=== PATIENT | male | born 1950 | race Two or more races ===

== ENCOUNTER 2017-04-09 15:54 | Inpatient (IN) | payer MEDICARE, MEDICAID ==
--- NOTE | 2017-04-09 18:37 | ED Physician Chart ---
ED Chief Complaint/HPI - Patient Information Date Seen:: 04/09/17 Time Seen:: 18:10 Chief Complaint:: HERE FOR MED CLEARANCE FOR PSYCH ADMIT History of Present Illness:: THE 66-YEAR-OLD MALE WAS REFERRED TO [facility] FOR PSYCHIATRIC EVALUATION AND MEDICAL CLEARANCE. THE PATIENT HAS HAD TWO PRIOR STROKES, THE FIRST IN 2014 AND THE MOST RECENT ABOUT A MONTH AGO. SINCE THEN THE PATIENT HAS BECOME DEPRESSED AND ANXIOUS AND HAS SHOWN AGGRESSION TOWARD HIS FELLOW NURSING INMATES. THE PATIENT IS TOTALLY NONVERBAL IN THE HISTORY WAS OBTAINED FROM THE PATIENT'S . 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 HE HAS A PAST MEDICAL HISTORY OF DIABETES, HYPERTENSION AND CARDIOVASCULAR DISEASE. Allergies:: Allergies Allergy/AdvReac Type Severity Reaction Status Date / Time Penicillins Allergy Verified 04/09/17 16:03 Vitals:: Vital Signs - 8 hr 04/09/17 16:03 Temp 97.8 F HR 60 RR 16 BP 112/73 O2 Sat % 98 Historian:: Family Member Family MD/PCP:: Patient's Review:: Nurse's Note Reviewed (nursing triage notes reviewed.) ED Review of Systems - Review of Systems General/Constitutional: No fever, No chills, Weakness (patient has extensive weakness on the right side of his body and is unable to use his upper extremity or to ambulate.), No diaphoresis Skin: No rash, No bruising Head: No headache Eyes: No pain, No diplopia ENT: No earache, No sore throat, No tinnitus Neck: No neck pain, No swelling, No thyromegaly, No stiffness, No mass noted Cardio Vascular: No chest pain, No palpitations, No edema Pulmonary: No SOB, No cough, No sputum, No wheezing GI: No nausea, No vomiting, No diarrhea, No pain, No melena, No constipation, No hematemesis G/U: No dysuria, No hematuria, No nacturia Musculoskeletal: Bone or joint pain, No back pain, No muscle pain Psychiatric: Depression, Anxiety, No suicidal ideation Hematopoietic: No bruising, No lymphadenopathy Allergic/Immuno: No urticaria, No angioedema Neurological: No syncope, Weakness, No headache, No seizure, No dizziness, No vertigo ED Past Medical History - Past Medical History Past Medical History: HTN, CVA/TIA (patient had a CVA in December 2014 and again a second CVA in 2018. 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 Family Medical History - Family Member Mother History Unknown: Yes ED Physical Exam - Physical Examination General/Constitutional: Awake, Well-developed, well-nourished, No distress Other Gen/Cons comments:: Less than fully alert. Patient is nonambulatory. Head: Atraumatic Eyes: Lids, conjuctiva normal, PERRL, EOMI Skin: No rash, No ecchymosis, Well hydrated ENMT: External ears, nose nl, Nasal exam nl, Lips, teeth, gums nl, Oropharynx nl , Tonsils nl Neck: Nontender, No JVD, No nuchal rigidity, No mass, No stridor Respiratory: Nl effort/Exclusion, Clear to Auscultation, No Wheeze/Rhonchi/Rales Cardio Vascular: RRR, No murmur, gallop, rubs, NL S1 S2 Other Cardio Vascular comments:: Adequate pulses in all 4 extremities. GI: No tenderness/rebounding/guarding, No organomegaly, No hernia, Normal BS's, Nondistended, No mass/bruits, No McBurney tenderness : No CVA tenderness, No discharge Extremities: No tenderness or effusion Neuro/Psych: Alert/oriented Other Neuro/Psych comments:: Patient has hemiplegia with paralysis in the right upper and right lower extremity. No facial asymmetry noted. Misc: No paraspinal tenderness ED Labs/Radiology/EKG Results - Lab Results Results: Laboratory Tests 04/09/17 04/09/17 04/09/17 18:36 18:36 18:36 WBC 7.6 RBC 4.73 Hgb 14.4 Hct 43.3 MCV 91.6 MCH 30.4 MCHC Differential 33.2 RDW 12.4 Plt Count 230 MPV 10.2 Neutrophils % 64.0 Lymphocytes % 25.9 Monocytes % 7.7 Eosinophils % 2.1 Basophils % 0.3 Sodium 137 Potassium 4.1 Chloride 105 Carbon Dioxide 26.1 Anion Gap 10.0 BUN 19 Creatinine 0.6 L Est GFR ( Amer) > 60.0 Est GFR (Non-Af Amer) > 60.0 BUN/Creatinine Ratio 31.7 Glucose 100 Calcium 9.4 Magnesium Total Bilirubin 0.8 AST 18 ALT 25 Alkaline Phosphatase 66 Ammonia B-Natriuretic Peptide Total Protein 6.7 Albumin 3.6 L Globulin 3.1 Albumin/Globulin Ratio 1.2 TSH 0.84 Urine Source Urine Color Urine Clarity Urine pH Ur Specific [place] Urine Protein Urine Glucose (UA) Urine Ketones Urine Blood Urine Nitrate Urine Bilirubin Urine Urobilinogen Ur Leukocyte Esterase Urine RBC Urine WBC Ur Epithelial Cells Urine Bacteria 04/10/17 04/10/17 04/10/17 06:15 06:15 06:15 WBC RBC Hgb Hct MCV MCH MCHC Differential RDW Plt Count MPV Neutrophils % Lymphocytes % Monocytes % Eosinophils % Basophils % Sodium 137 Potassium 3.8 Chloride 106 Carbon Dioxide 24.9 Anion Gap 9.9 BUN 17 Creatinine 0.5 L Est GFR ( Amer) > 60.0 Est GFR (Non-Af Amer) > 60.0 BUN/Creatinine Ratio 34.0 Glucose 125 H Calcium 9.1 Magnesium 2.0 Total Bilirubin AST ALT Alkaline Phosphatase Ammonia 49 B-Natriuretic Peptide 78.5 Total Protein Albumin Globulin Albumin/Globulin Ratio TSH Urine Source Urine Color Urine Clarity Urine pH Ur Specific [place] Urine Protein Urine Glucose (UA) Urine Ketones Urine Blood Urine Nitrate Urine Bilirubin Urine Urobilinogen Ur Leukocyte Esterase Urine RBC Urine WBC Ur Epithelial Cells Urine Bacteria 04/10/17 07:45 WBC RBC Hgb Hct MCV MCH MCHC Differential RDW Plt Count MPV Neutrophils % Lymphocytes % Monocytes % Eosinophils % Basophils % Sodium Potassium Chloride Carbon Dioxide Anion Gap BUN Creatinine Est GFR ( Amer) Est GFR (Non-Af Amer) BUN/Creatinine Ratio Glucose Calcium Magnesium Total Bilirubin AST ALT Alkaline Phosphatase Ammonia B-Natriuretic Peptide Total Protein Albumin Globulin Albumin/Globulin Ratio TSH Urine Source CATH Urine Color YELLOW Urine Clarity CLEAR Urine pH 6.5 Ur Specific [place] 1.010 Urine Protein NEGATIVE Urine Glucose (UA) NEGATIVE Urine Ketones NEGATIVE Urine Blood LARGE H Urine Nitrate NEGATIVE Urine Bilirubin NEGATIVE Urine Urobilinogen 0.2 Ur Leukocyte Esterase MODERATE H Urine RBC 10-25 H Urine WBC 6-10 Ur Epithelial Cells OCCASIONAL Urine Bacteria FEW THE CBC WAS UNREMARKABLE WITH NO LEUKOCYTOSIS, ANEMIA OR PLATELET ABNORMALITY. METABOLIC STUDIES SHOWED ELECTROLYTES ALL TO BE WITHIN NORMAL PARAMETERS. THE BUN AND CREATININE WERE WITHIN NORMAL PARAMETERS AND RENAL FUNCTION IS NORMAL. THE URINALYSIS WAS NEGATIVE FOR EVIDENCE OF A UTI. SINGLE VIEW CHEST X-RAY: PATIENT HAD BORDERLINE CARDIOMEGALY WITH NO CHF. NO AREAS OF PULMONARY CONSOLIDATION OR INFILTRATE. NO PNEUMOTHORAX. NO MEDIASTINAL WHITENING. IMPRESSION: NO ACUTE CARDIOPULMONARY FINDINGS. ED Assessment - Assessment General Assessment: Laboratory Tests 04/09/17 18:36 WBC 7.6 RBC 4.73 Hgb 14.4 Hct 43.3 MCV 91.6 MCH 30.4 MCHC Differential 33.2 RDW 12.4 Plt Count 230 MPV 10.2 Neutrophils % 64.0 Lymphocytes % 25.9 Monocytes % 7.7 Eosinophils % 2.1 Basophils % 0.3 The CBC is unremarkable with a white count within the normal parameters, hemoglobin level of 14.4 and the normal range. And a platelet count of 2:30 which is normal. CASE SUMMARY: THE 66-YEAR-OLD MALE WAS REFERRED TO [facility] FOR PSYCHIATRIC EVALUATION AND MEDICAL CLEARANCE. THE PATIENT HAD HIS SECOND CVA APPROXIMATELY A MONTH AGO AND SINCE THEN HAS BEEN DEPRESSED, ANXIOUS AND HAS SHOWED AGGRESSIVE ACTIVITY TOWARD OTHER PATIENTS AT HIS FACILITY. THE PATIENT IS HEMIPLEGIC AND PARALYZED IN THE RIGHT UPPER AND LOWER EXTREMITIES. HE HAS A PRIOR HISTORY OF MYOCARDIAL INFARCTION. HIS FIRST CVA WAS IN DECEMBER 2014 AND THE MOST RECENT CVA WAS ONE MONTH AGO. PATIENT HAS NO HISTORY OF DIABETES IS BEING TREATED FOR HYPERTENSION. ON PHYSICAL EXAMINATION HE WAS VERBALLY UNRESPONSIVE AND UNABLE TO PROVIDE ANY INFORMATION. ON PHYSICAL EXAMINATION HE APPEARED TO BE IN NO ACUTE DISTRESS AND WAS SLEEPING MOST OF THE TIME. ASIDE FROM THE FOCAL NEUROLOGIC DEFICIT INVOLVING HIS RIGHT SIDE IT WAS UNREMARKABLE. LABORATORY STUDIES OR FOR THE MOST PART WITHIN NORMAL PARAMETERS AND PROVIDE NO EXPLANATION FOR THE PATIENT'S BEHAVIOR. HIS URINALYSIS WAS NEGATIVE FOR UTI IN THE CHEST X-RAY WAS NEGATIVE FOR ANY ACUTE CARDIOPULMONARY FINDINGS. THE CASE WAS DISCUSSED WITH DR. VAZQUEZ AND HE WILL BE ADMITTED FOR FURTHER EVALUATION AND TREATMENT INDICATED. ADMITTED IN STABLE CONDITION. MDM DDX ALTERED LEVEL OF CONSCIOUSNESS: NOT HYPOGLYCEMIA BASED ON LABORATORY STUDIES. NOT ACUTE TRAUMATIC BRAIN INJURY BASED ON THE PATIENT'S HISTORY AND PHYSICAL EXAM. NOT SEPSIS BASED ON LABORATORY STUDIES AND VITAL SIGNS. NOT PNEUMONIA BASED ON NO FEVER AND NO AREAS OF CONSOLIDATION OR INFILTRATE ON CHEST X-RAY. ED Septic Shock - . Is Septic Shock (SBP<90, OR Lactate>4 mmol\L) present?: No - <6hrs of presentation: Vital Signs: Vital Signs - 8 hr 04/09/17 16:03 Temp 97.8 F HR 60 RR 16 BP 112/73 O2 Sat % 98 ED Reassessment (Disposition) - Reassessment Reassessment Condition:: Unchanged - Diagnosis Diagnosis:: RECENT CVA . WITH RIGHT-SIDED HEMIPARESIS. AGGRESSIVE BEHAVIOR, UNCLEAR CAUSE. HYPERTENSION. - Aftercare/Follow up Instructions Aftercare/Follow-Up Instructions:: Counseled pt & family regarding lab results/ diagnosis & need follow up ED Discharge Plan - Patient Disposition Admit/Discharge/Transfer: Acute Care w/in this hosp
[2017-04-09 18:41] LABS: % BASOPHILS 0.3 % (0.0-2.0); % EOSINOPHILS 2.1 % (0.0-5.0); % LYMPHOCYTES 25.9 % (20.0-50.0); % MONOCYTES 7.7 % (2.0-10.0); EOSINOPHILE ABSOLUTE 0.2 Th/cmm (0.1-0.4); HEMATOCRIT 43.3 % (41.0-60); HEMOGLOBIN 14.4 gm/dL (12-16); MEAN CELL VOLUME 91.6 fl (80-99); MEAN CORPUSCULAR HEMOGLOBIN 30.4 pg (27.0-31.0); MEAN CORPUSCULAR HGB CONC 33.2 pg (28.0-36.0); MEAN PLATELET VOLUME 10.2 fl; MONOCYTE ABSOLUTE 0.6 Th/cmm (0.3-1.0); NEUTROPHILE ABSOLUTE 4.8 Th/cmm (1.8-8.0); PLATELET COUNT 230 Th/cmm (150-400); RED BLOOD COUNT 4.73 Mil/cmm (3.80-5.80); RED CELL DISTRIBUTION WIDTH 12.4 % (11.5-20.0); WHITE BLOOD COUNT 7.6 Th/cmm (4.8-10.8)
[2017-04-09 18:58] LABS: ALB/GLOB RATIO 1.2 (1.0-1.8); ALBUMIN 3.6 gm/dL (4.2-5.5); ALKALINE PHOSPHATASE 66 U/L (34-104); BILIRUBIN,TOTAL 0.8 mg/dL (0.3-1.0); BUN - UREA NITROGEN 19 mg/dL (7-25); CALCIUM SERUM 9.4 mg/dL (8.6-10.3); CARBON DIOXIDE 26.1 mEq/L (21.0-31.0); CHLORIDE 105 mEq/L (98-107); CREATININE - SERUM 0.6 mg/dL (0.7-1.3); GFR AFRICAN-AMERICAN > 60.0 ml/min (>90); GFR NON AFRICAN-AMERICAN > 60.0 ml/min; GLUCOSE 100 mg/dL (70-105); POTASSIUM SERUM 4.1 mEq/L (3.5-5.1); SGOT 18 U/L (13-39); SGPT/ALT 25 U/L (7-52); SODIUM SERUM 137 mEq/L (136-145); TOTAL PROTEIN,SERUM 6.7 gm/dL (6.0-8.3)
[2017-04-09] MEDS ORDERED: Magnesium Hydroxide (MOM) 30 mL UDC GT PRN (21:31)
[2017-04-09] MEDS ORDERED: Fleet Enema 135 mL RC PRN (21:31)
[2017-04-09] MEDS ORDERED: Ipratropium Neb 0.5 mg/2.5 mL UD HHN PRN (21:32)
[2017-04-09] MEDS ORDERED: guaiFENesin 200 MG/10 ML UDC PO PRN (21:32)
[2017-04-09] MEDS ORDERED: Albuterol Nebulizer 2.5mg/3mL HHN PRN (21:32)
[2017-04-09] MEDS: D5-0.45NS 1,000 ML IV SCH (23:08)
[2017-04-09 23:49] VITALS: BP 139/81
[2017-04-10 06:47] LABS: ANION GAP 9.9 (7.0-16.0); BUN - UREA NITROGEN 17 mg/dL (7-25); CALCIUM SERUM 9.1 mg/dL (8.6-10.3); CARBON DIOXIDE 24.9 mEq/L (21.0-31.0); CHLORIDE 106 mEq/L (98-107); CREATININE - SERUM 0.5 mg/dL (0.7-1.3); GFR AFRICAN-AMERICAN > 60.0 ml/min (>90); GFR NON AFRICAN-AMERICAN > 60.0 ml/min; GLUCOSE 125 mg/dL (70-105); POTASSIUM SERUM 3.8 mEq/L (3.5-5.1); SODIUM SERUM 137 mEq/L (136-145)
[2017-04-10 07:57] LABS: URINE MICROSCOPIC INDICATED? YES; URINE SOURCE CATH
--- NOTE | 2017-04-10 08:09 | Diagnostic Imaging Report ---
CHEST X-RAY: AP view INDICATION: pain COMPARISON: None FINDINGS: Suboptimal lung volume are seen with mild increased interstitial lung markings. No focal consolidation or effusions. Heart size normal. Mildly tortuous aorta is noted. Osseous structures are intact. IMPRESSION: Suboptimal lung volumes with mild increased interstitial lung markings suggestive of chronic and probable atelectatic changes. No focal consolidation identified.
[2017-04-10 08:37] LABS: URINE BILIRUBIN NEGATIVE (NEGATIVE); URINE BLOOD LARGE (NEGATIVE); URINE GLUCOSE (UA) NEGATIVE (NEGATIVE); URINE KETONE NEGATIVE (NEGATIVE); URINE LEUKOCYTE ESTERASE MODERATE (NEGATIVE); URINE NITRATE NEGATIVE (NEGATIVE); URINE PH 6.5 (4.6 - 8.0); URINE PROTEIN NEGATIVE (NEGATIVE); URINE UROBILINOGEN 0.2 E.U./dL (0.2 - 1.0)
[2017-04-10 08:38] LABS: URINE CLARITY CLEAR (CLEAR); URINE COLOR YELLOW
[2017-04-10 08:44] LABS: URINE BACTERIA FEW /hpf (NONE SEEN); URINE EPITHELIAL CELLS OCCASIONAL /lpf (FEW)
[2017-04-10] MEDS ORDERED: Non-Formulary Item 1 EA (Apixaban [Eliquis] 5 MG) GT SCH (09:00)
[2017-04-10] MEDS ORDERED: Multivitamin w/ Minerals Tab GT SCH (09:00)
[2017-04-10] MEDS ORDERED: POLYETHYLENE GLYCOL 3350 17 GM PACK GT SCH (09:00)
[2017-04-10] MEDS: Levetiracetam 500 mg/5mL 5mL UDSyr *for ORAL USE ONLY GT SCH ×2 (09:20→17:08)
--- NOTE | 2017-04-10 10:11 | Diagnostic Imaging Report ---
CT scan of the brain without intravenous contrast HISTORY: Stroke, CVA Total DLP equals 680 CTDI equals 39.4 Axial sections were obtained from the base of the skull to the vertex. The exam demonstrates a large surgical/craniotomy defect that extends about the left frontal, parietal, and occipital regions of the skull. There is extensive extra-axial hypodensity adjacent to the defect. Associated volume loss suggest changes associated with encephalomalacia and a probable chronic hygroma related to surgical sequelae. There is rather extensive heterogeneous hyperdensity with density measurements consistent with acute hemorrhage extending through the right temporal and occipital regions of the brain above the tentorium. There is question of extra-axial involvement along the cerebral sulci of this area. Adjacent hypodensity is consistent with edema. Changes of underlying generalized cerebral atrophy noted. IMPRESSION: 1. Extensive surgical changes associated with a large craniotomy defect that extends throughout the left frontal, parietal, and occipital regions. Adjacent hypodensity that appears suggest extensive encephalomalacia with volume loss. 2. Findings consistent with heterogeneous acute hemorrhage within the right temporal and occipital regions above the tentorium with adjacent edema. Questionable extra-axial extension along the cerebral sulci in this area.
[2017-04-10] MEDS ORDERED: VTE Chemical Prophylaxis Screen/Admission MC PRN (11:06)
--- NOTE | 2017-04-10 11:37 | Internal Medicine Prog Note ---
Internal Medicine Subjective - Subjective Service Date: 04/10/17 ([facility] [id number]) Internal Medicine Objective - Results Result Diagrams: 04/09/17 18:36 04/10/17 06:15 Recent Labs: Laboratory Last Values WBC 7.6 Th/cmm (4.8-10.8) 04/09/17 18:36 RBC 4.73 Mil/cmm (3.80-5.80) 04/09/17 18:36 Hgb 14.4 gm/dL (12-16) 04/09/17 18:36 Hct 43.3 % (41.0-60) 04/09/17 18:36 MCV 91.6 fl (80-99) 04/09/17 18:36 MCH 30.4 pg (27.0-31.0) 04/09/17 18:36 MCHC Differential 33.2 pg (28.0-36.0) 04/09/17 18:36 RDW 12.4 % (11.5-20.0) 04/09/17 18:36 Plt Count 230 Th/cmm (150-400) 04/09/17 18:36 MPV 10.2 fl 04/09/17 18:36 Neutrophils % 64.0 % (40.0-80.0) 04/09/17 18:36 Lymphocytes % 25.9 % (20.0-50.0) 04/09/17 18:36 Monocytes % 7.7 % (2.0-10.0) 04/09/17 18:36 Eosinophils % 2.1 % (0.0-5.0) 04/09/17 18:36 Basophils % 0.3 % (0.0-2.0) 04/09/17 18:36 Sodium 137 mEq/L (136-145) 04/10/17 06:15 Potassium 3.8 mEq/L (3.5-5.1) 04/10/17 06:15 Chloride 106 mEq/L (98-107) 04/10/17 06:15 Carbon Dioxide 24.9 mEq/L (21.0-31.0) 04/10/17 06:15 Anion Gap 9.9 (7.0-16.0) 04/10/17 06:15 BUN 17 mg/dL (7-25) 04/10/17 06:15 Creatinine 0.5 mg/dL (0.7-1.3) L 04/10/17 06:15 Est GFR ( Amer) > 60.0 ml/min (>90) 04/10/17 06:15 Est GFR (Non-Af Amer) > 60.0 ml/min 04/10/17 06:15 BUN/Creatinine Ratio 34.0 04/10/17 06:15 Glucose 125 mg/dL (70-105) H 04/10/17 06:15 Calcium 9.1 mg/dL (8.6-10.3) 04/10/17 06:15 Magnesium 2.0 mg/dL (1.9-2.7) 04/10/17 06:15 Total Bilirubin 0.8 mg/dL (0.3-1.0) 04/09/17 18:36 AST 18 U/L (13-39) 04/09/17 18:36 ALT 25 U/L (7-52) 04/09/17 18:36 Alkaline Phosphatase 66 U/L (34-104) 04/09/17 18:36 Ammonia 49 umol/L (16-53) 04/10/17 06:15 B-Natriuretic Peptide 78.5 pg/mL (5.0-100.0) 04/10/17 06:15 Total Protein 6.7 gm/dL (6.0-8.3) 04/09/17 18:36 Albumin 3.6 gm/dL (4.2-5.5) L 04/09/17 18:36 Globulin 3.1 gm/dL 04/09/17 18:36 Albumin/Globulin Ratio 1.2 (1.0-1.8) 04/09/17 18:36 TSH 0.84 uIU/ml (0.34-5.60) 04/09/17 18:36 Urine Source CATH 04/10/17 07:45 Urine Color YELLOW 04/10/17 07:45 Urine Clarity CLEAR (CLEAR) 04/10/17 07:45 Urine pH 6.5 (4.6 - 8.0) 04/10/17 07:45 Ur Specific [place] 1.010 (1.005-1.030) 04/10/17 07:45 Urine Protein NEGATIVE mg/dL (NEGATIVE) 04/10/17 07:45 Urine Glucose (UA) NEGATIVE mg/dL (NEGATIVE) 04/10/17 07:45 Urine Ketones NEGATIVE mg/dL (NEGATIVE) 04/10/17 07:45 Urine Blood LARGE (NEGATIVE) H 04/10/17 07:45 Urine Nitrate NEGATIVE (NEGATIVE) 04/10/17 07:45 Urine Bilirubin NEGATIVE (NEGATIVE) 04/10/17 07:45 Urine Urobilinogen 0.2 E.U./dL (0.2 - 1.0) 04/10/17 07:45 Ur Leukocyte Esterase MODERATE (NEGATIVE) H 04/10/17 07:45 Urine RBC 10-25 /hpf (0-5) H 04/10/17 07:45 Urine WBC 6-10 /hpf (0-5) 04/10/17 07:45 Ur Epithelial Cells OCCASIONAL /lpf (FEW) 04/10/17 07:45 Urine Bacteria FEW /hpf (NONE SEEN) 04/10/17 07:45 - Physical Exam Vitals and I&O: Vital Signs Temp 97.9 F 04/09/17 22:09 Pulse 72 04/10/17 09:21 Resp 18 04/10/17 02:20 BP 132/73 04/10/17 09:21 Pulse Ox 94 04/10/17 02:20 Intake & Output 04/09/17 04/10/17 04/10/17 18:59 06:59 18:59 Intake Total 420 Balance 420 Weight (lbs) 148 lb 6.4 oz 148 lb Intake: Tube Feeding 420 Other: # Bowel Movements 0 Active Medications: Current Medications Acetaminophen (Tylenol) 650 mg PO Q4H PRN PRN Reason: Pain Or Fever above 101 Stop: 06/08/17 21:31 Albuterol Sulfate (Albuterol 2.5mg/3ml Neb Ud) 2.5 mg HHN Q2HRT PRN PRN Reason: Shortness of Breath or Wheeze Stop: 06/08/17 21:31 Atorvastatin Calcium (Lipitor) 20 mg GT HS SALAZAR Stop: 06/09/17 20:59 Bisacodyl (Dulcolax 10 Mg Supp) 10 mg RC DAILY PRN PRN Reason: Constipation Stop: 06/08/17 21:30 Carvedilol (Coreg) 6.25 mg GT BID SALAZAR Stop: 06/09/17 08:59 Last Admin: 04/10/17 09:20 Dose: 6.25 mg Finasteride (Proscar) 5 mg GT DAILY SALAZAR PRN Reason: Protocol Stop: 06/09/17 08:59 Last Admin: 04/10/17 09:20 Dose: 5 mg Guaifenesin (Robitussin) 200 mg PO Q4HR PRN PRN Reason: Cough or Congestion Stop: 06/08/17 21:31 Dextrose/Sodium Chloride (D5-0.45ns) 1,000 mls @ 80 mls/hr IV .[id number] [facility] Stop: 06/08/17 21:44 Last Admin: 04/09/17 23:08 Dose: 80 mls/hr Ipratropium [place] (Atrovent Neb 0.5mg/2.5ml) 0.5 mg HHN Q2HRT PRN PRN Reason: Shortness of Breath or Wheeze Stop: 06/08/17 21:31 Latanoprost (Xalatan 0.005% Ophth Soln) 1 drop LEFT EYE HS [facility] Stop: 06/09/17 20:59 Levetiracetam (Keppra) 250 mg GT BID [facility] Stop: 06/09/17 08:59 Last Admin: 04/10/17 09:20 Dose: 250 mg Lisinopril (Zestril) 5 mg GT DAILY [facility] Stop: 06/09/17 08:59 Last Admin: 04/10/17 09:21 Dose: 5 mg Lorazepam (Ativan) 1 mg IV Q4H PRN; Protocol PRN Reason: Seizure Stop: 06/08/17 21:31 Lorazepam (Ativan) 0.5 mg GT Q6H PRN; Protocol PRN Reason: Anxiety Stop: 06/08/17 21:30 Last Admin: 04/09/17 23:39 Dose: 0.5 mg Magnesium Hydroxide (Milk Of Magnesia) 30 ml GT DAILY PRN PRN Reason: Constipation Stop: 06/08/17 21:30 Miscellaneous (Apixaban [Eliquis]) 5 mg GT BID [facility] Stop: 06/09/17 08:59 Miscellaneous (Vte Chemical Prophylaxis Screen/ Admission) 1 ea MC PRN PRN PRN Reason: PROTOCOL Stop: 06/09/17 11:05 Nitroglycerin (Nitrostat) 0.4 mg SL Q5MIN PRN PRN Reason: Chest Pain Stop: 06/08/17 21:31 Ondansetron HCl (Zofran) 4 mg IV Q8H PRN PRN Reason: Nausea / Vomiting Stop: 06/08/17 21:31 Polyethylene Glycol (Miralax) 17 gm GT DAILY [facility] Stop: 06/09/17 08:59 Last Admin: 04/10/17 09:21 Dose: 17 gm Sodium Phosphate (Fleet Enema) 118 ml RC DAILY PRN PRN Reason: Constipation Stop: 06/08/17 21:30
[2017-04-10] MEDS: D5-0.45NS 1,000 ML IV SCH (11:56)
--- NOTE | 2017-04-10 13:37 | History & Physical ---
ADMIT DATE: 04/10/2017 CHIEF COMPLAINT: Change of mental status. HISTORY OF PRESENT ILLNESS: This is a 66-year-old male who is a resident of [facility]. According to daughter at bedside, she noticed that the patient has been having increase in confusion and the patient was found to be more sleepy than usual and the patient has also been having intermittent episodes of aggressiveness towards nursing staff at the detention. The patient had 2 strokes, one in 2014 and one of this year, 02/2017. The patient had a CAT scan of the head done here in the ER and it shows acute hemorrhage. Neurologist was called on the case and he advises this patient to be transferred to a higher level of care, immediately. For continuation of care, the patient is now admitted to the med/surg unit. PAST MEDICAL HISTORY: Stroke in 2014 and recent stroke in 2018, hemiplegia, hemiparesis intracerebral hemorrhage affecting right dominant side, muscle weakness, gastrostomy status, dysphagia, acute VT, hypertension, hyperlipidemia, atherosclerotic heart disease, CAD, epilepsy, BPH, GERD, glaucoma. PAST SURGICAL HISTORY: Craniotomy and PEG. SOCIAL HISTORY: The patient is a detention resident, requiring 24-hour nursing care. FAMILY HISTORY: Noncontributory. ALLERGIES: PENICILLIN. LABORATORY DATA: WBC 7.6, H and H 14.4 and 43.3, platelet of 230. Sodium 137, potassium 4.1, chloride 105, BUN 19, creatinine 0.6, albumin at 3.6. The patient had a urinalysis done, positive for UTI. DIAGNOSTICS: The patient had a CT of the head done and the impression is extensive surgical changes associated with large craniotomy defect, extensor of the left frontal, parietal, and occipital region, adjacent hypodensity. The appearance suggestive extensive encephalomalacia with volume loss. Findings consistent with heterogenous acute hemorrhage within the right temporal and the occipital regions above the tentorium and with adjacent edema, questionable extraaxial extension along the cerebral sulci in this area. The patient also had a chest x-ray done and the impression is suboptimal lung volumes with mild increased interstitial lung marking suggestive of chronic and probable atelectatic changes, no focal consolidation identified. ASSESSMENT: Altered level of consciousness, increasing in confusion, acute hemorrhage within the right temporal and occipital regions above the tentorium with adjacent edema, history of stroke, hemiplegia, hemiparesis affecting the right side, generalized weakness, hypertension, hyperlipidemia, BPH, GERD and esophagitis. PLAN: The patient to be admitted to the med/surg unit. paper products inspector to arrange patient to be transferred to a higher level of care. Neurology consultation. Carotid ultrasound, IV fluids for hydration. Fall precautions will be initiated. We will continue to follow this patient. JOB# [id number]
--- NOTE | 2017-04-10 14:00 | Diagnostic Imaging Report ---
Bilateral carotid Doppler ultrasound exam HISTORY: Stroke, CVA Sonographic sector images were obtained through the carotid bifurcation regions bilaterally. Associated Doppler data was obtained. The exam is somewhat limited due to patient agitation and movement. The exam of the right side demonstrates generalized intimal thickening throughout the bifurcation region. Mild plaque noted at the origins of the right internal and external carotid arteries. No significant narrowing or stenosis. Antegrade vertebral artery flow. Velocities and flow ratios are normal (ICC/CCA equals 1.2). The exam of the left side demonstrates generalized intimal thickening through the bifurcation region. Mild plaque noted at the origins of the left internal and external carotid arteries. No significant narrowing or stenosis. Antegrade vertebral artery flow. Velocities and flow ratios are normal (ICC/CCA equals 0.98). Limited images of the thyroid gland demonstrate questionable nodules within the left lobe. If needed, a dedicated thyroid ultrasound exam would provide additional assessment. IMPRESSION: 1. Somewhat limited exam due to patient agitation and movement. 2. Mild atherosclerotic changes that do not appear to be hemodynamically significant 3. Questionable nodules within the left lobe of the thyroid gland. If needed, a dedicated thyroid ultrasound exam would provide additional assessment.
[2017-04-10] MEDS ORDERED: Atorvastatin Calcium 10 MG TAB GT SCH (21:00)
--- NOTE | 2017-04-11 11:48 | Consultation ---
DATE OF CONSULTATION: 04/10/2017 NEUROLOGY CONSULT The patient is a 66-year-old. The patient in [facility]. The patient apparently was noted to be more confused, more sleepy than usual, getting somewhat aggressive, abnormal behavior. Came here. CAT scan shows acute bleed. The patient's neurosurgical services here. Recommend transfer to a facility with neurosurgical services. PAST MEDICAL HISTORY: The patient previous stroke. The patient also looks like he has had previous hemorrhage with a left craniotomy about 3 years ago. That left him with aphasia, seems to be really only 1 or 2 words he can repeat and on top of that, I think he has difficulty with comprehension also. The patient with: 1. Right hemiplegia with the right arm in a semi-flexed position. Increased tone, right leg also very limited movement. 2. Previous history of OR. 3. Hypertension. 4. Hyperlipidemia. 5. Epilepsy. 6. Glaucoma. 7. Gastroesophageal reflux disease. 8. BPH. PROCEDURE: The patient's G-tube. Craniotomy. SOCIAL HISTORY: In a nursing facility. MEDICATIONS: As per reconciliation. Here, the patient is on Lipitor, Coreg, Proscar, Robitussin, Keppra 250 b.i.d., lisinopril 5 mg, lorazepam p.r.n. REVIEW OF SYSTEMS: Difficult to get. Family by the bedside. No seizure recently. The patient has no marked complaints of headache. The patient has no marked chest pain. No shortness of breath. Aphasia. The patient's right-sided weakness, G-tube. PHYSICAL EXAMINATION: VITAL SIGNS: Temperature 97.6, blood pressure 130/70, pulse is 72. NECK: Supple. No neck bruits. HEART: Sounds S1, S2. LUNGS: Clear. NEUROLOGIC: The patient is awake, alert. The patient says he is aphasic. He has difficulty both with comprehension and really does not come up with words, he just keeps saying one single word over and over, which is actually meaningless words. The patient seems like he is think on the left side, ignores that. FACE: Some facial droop on the right. MOTOR: Right arm in semi-flexed position. Increased tone. Right leg also increased tone. The patient's left side: We will move the left arm, less movement of the left leg. Also, some increased on the left. Reflexes increased on the right arm is about 2+ to 3. Left arm is about 1+ to 2. Legs, right is about 3+, left is actually also may about 3. Question Babinski bilateral. INVESTIGATIONS: 1. CT scan of the head shows an acute bleed right temporal and occipital region with some edema. 2. The patient's old craniotomy in the left frontoparietal occipital region hypodense area. 3. Carotid Dopplers okay. LABORATORY DATA: WBC 7.6, hemoglobin 14.4, platelets 230. UA: WBC 6-10. ASSESSMENT: 1. Acute right temporal occipital bleed. 2. Previous defect in the left frontoparietal occipital area with craniotomy. 3. The patient with residual of right hemiplegia, aphasia. 4. Dysphagia. 5. History of seizures, at the moment, stable. 6. History of hypertension. 7. History of hyperlipidemia, coronary artery disease with OR in the past. PLAN: At this time, the patient transferred to a higher level with the neurosurgical service available. In the meantime, blood pressure control, keep it below systolic below 140, diastolic below 90. JOB# [id number]
[2017-04-11 15:14] LABS: FOLIC ACID 17.6 ng/mL (>3.0)
== END 2017-04-10 22:25 | DRG 64 ==
LOC: ER 15:54 → MSI 20:55
PROVIDERS: ADMIT Internal Medicine; ATTEND Internal Medicine
DX: I61.1 Nontraumatic intracerebral hemorrhage in hemisphere, cortical (principal); R53.2 Functional quadriplegia; I69.351 Hemiplegia and hemiparesis following cerebral infarction affecting right dominant side; I69.320 Aphasia following cerebral infarction; R13.10 Dysphagia, unspecified; Z93.1 Gastrostomy status; I10 Essential (primary) hypertension; E78.5 Hyperlipidemia, unspecified; K21.9 Gastro-esophageal reflux disease without esophagitis; N40.0 Benign prostatic hyperplasia without lower urinary tract symptoms; K20.9 Esophagitis, unspecified; H40.9 Unspecified glaucoma; I25.10 Atherosclerotic heart disease of native coronary artery without angina pectoris; G40.909 Epilepsy, unspecified, not intractable, without status epilepticus; F41.9 Anxiety disorder, unspecified; E11.9 Type 2 diabetes mellitus without complications; F32.9 Major depressive disorder, single episode, unspecified; I25.2 Old myocardial infarction; Z88.0 Allergy status to penicillin
CPT/HCPCS: 36415-UA; 70450-TC; 71045-TC; 80048-TC; 80053-TC; 81001-TC; 82140-TC; 82607-90; 82746-90; 83735-TC; 83880-TC; 84443-TC; 85025-TC; 93005; 93880-TC; 94760; J7030; Z7610